=== PATIENT | male | born 1960 ===

== ENCOUNTER 2024-10-04 08:53 | Day surgery (SDC) | payer OTHER ==
[2024-10-01 14:25] VITALS: BP 118/75
[~2024-10-04] VITALS: Ht 182.9 cm; Wt 106.6 kg
[~2024-10-04 08:53] MED LIST: COZAAR100 MG PO; METFORMIN HCL500 M3 PO; PEPCID AC20 MG; TOPROL XL100 MG; ZYRTEC10 MG
[2024-10-04] MEDS ORDERED: NEURONTIN300 MG PO (09:18)
[2024-10-04] MEDS ORDERED: TYLENOL ARTHRI650 MG PO (09:18)
[2024-10-04] MEDS ORDERED: MIRALAX17 GM PO (09:18)
[2024-10-04] MEDS ORDERED: TRAMADOL HCL50 MG PO (09:18)
[2024-10-04] MEDS ORDERED: CEFAZOLIN SODIUM 1,000 MG VIAL IV ONE (12:00)
[2024-10-04] MEDS ORDERED: BUPIVACAINE HCL 30 ML VIAL IJ ONE ×2 (12:15)
[2024-10-04] MEDS ORDERED: MORPHINE SULFATE 4 MG/ML VIAL IV ONE ×2 (13:00→13:30)
== END 2024-10-04 16:15 | disposition home or self-care (01) ==
LOC: CIR.AMB 08:53
PROVIDERS: ATTEND Surgery
DX: K42.0 Umbilical hernia with obstruction, without gangrene (principal); Z88.6 Allergy status to analgesic agent
CPT/HCPCS: 49594; C1781